=== PATIENT | male | born 1975 | race Caucasian/White ===

== ENCOUNTER → 2023-02-02 | Outpatient (CLI) | payer MEDICAID ==
--- NOTE | 2023-02-02 10:40 | CA ---
Stress Echo Report Colten Cole Age: 47 Gender: M : 1975 Exam Date: 02/02/2023 09:32 Exam Location: [place] Echo Ht (in): 72 Wt (lb): 172 Ordering Physician: Obed Siddiqui MD Referring Physician: RONEL, Bridge Ironworker Helper: VJ, Technologist Procedure CPT: Indication: I25.10 ATHSCL HEART DISEASE OF [place] ICD-9 Codes: Rhythm: Patient History: Cardiac Medications: Medications in past 24 hours: Contrast: Stress Results Protocol: Nito Total dose(mL): Exercise Duration (min:sec): 11:[address] Depression (mm): 0 Angina Score: 0 James Score: 11.2 METS: 12.1 Resting HR: 67 Resting BP: 120 / 69 Peak HR: 165 Peak BP: 214 / 71 Max Predicted HR: 175 94 % Max Predicted HR Target HR: 149 Double Product: [id number] Stress Summary: The patient's target heart rate was achieved BP Response: Normal Reason for Termination: Reached target heart rate or work-load Cardiac Symptoms: No symptoms ECG Analysis Resting ECG: Normal sinus rhythm, normal ECG Stress ECG: No abnormal ST/T wave changes with exercise Arrhythmia: None Echo Analysis Resting Echo: Normal resting echocardiogram. Peak Echo Analysis: Normal wall thickening and motion MEASUREMENTS (Male/Female) Normal Values CONCLUSIONS Patient falls into low-risk group (DTS >= +5). This associates the patient with an annual CV mortality <= 0.5%. 1. Good exercise tolerance 2. Normal electrocardiographic response to exercise 3. Normal stress echocardiogram with no evidence of stress induced ischemia Dr. Lakeisha Love MD (Electronically Signed) Final Date: 02 February 2023 10:38
== END | disposition home or self-care (01) ==
LOC: RADNMMAIN 08:59
PROVIDERS: ATTEND Internal Medicine Geriatric Medicine
DX: I25.10 Atherosclerotic heart disease of native coronary artery without angina pectoris (principal)
CPT/HCPCS: 93351